=== PATIENT | female | born 1980 | race Hispanic/Latino ===

== ENCOUNTER 2019-07-09 16:07 | Emergency (ER) | payer SELFPAY ==
[2019-07-09] MEDS ORDERED: NA CHLORIDE 0.9% 1,000 ML ONE (16:35)
[2019-07-09] MEDS ORDERED: ONDANSETRON 4 MG/2 ML VIAL ONE (16:35)
[2019-07-09 17:05] LABS: Absolute Lymphocytes (CBC) 1.4 K/uL (0.7-4.9); Basophils % 0.3 % (0-1.3); Hematocrit 34.5 % (36.0-45.0); Lymphocytes % 11.5 % (15.3-44.8); MPV 10.2 fL (7.6-11.3); RBC Red Blood Cell Count 4.52 M/uL (3.86-4.86)
[2019-07-09 17:18] LABS: Urine Bacteria <20 /HPF (<20); Urine Culture Reflex Order NOT NEEDED; Urine RBC <5 /HPF (NONE SEEN)
[2019-07-09 17:34] LABS: Albumin 3.8 g/dL (3.4-5.0); Bilirubin Direct 0.1 mg/dL (0-0.2); Bilirubin Total 0.4 mg/dL (0.2-1.0); Protein, Total 8.2 g/dL (6.4-8.2)
[2019-07-09 17:58] LABS: Potassium 4.1 mmol/L (3.5-5.1)
--- NOTE | 2019-07-09 18:36 | RAD REPORT ---
EXAM DESCRIPTION: CT - Abdomen Pelvis W Contrast - 07/09/2019 6:18 pm CLINICAL HISTORY: lower abdomen pain COMPARISON: No comparisons TECHNIQUE: Biphasic, helical CT imaging of the abdomen and pelvis was performed following 100 ml non -ionic IV contrast. No oral contrast administered. All CT scans are performed using dose optimization technique as appropriate and may include automated exposure control or mA/KV adjustment according to patient size. FINDINGS: No suspicious findings in the lung bases. Liver is borderline to mildly fatty infiltrated. No focal liver lesion. Spleen and pancreas show no s uspicious findings peer gallbladder is absent. No biliary tree dilatation. Symmetric renal function is seen with no hydronephrosis or suspicious renal mass. No pyelonephritis o r acute parenchymal process. No bladder abnormalities. No adrenal abnormalities. An enlarged uterus i s seen. There is a 5.2 centimeter enhancing isodense mass in the left side of the uterus. This has an appearance typical for a large fibroid. No air in the endometrial cavity. Tubular fluid-filled struc tures are present in each adnexae. Minimal congestion or edema in the adnexal fatty tissues. Lao of the fallopian tubes are slightly thickened. No dilated bowel loops or bowel wall thickening. Appendicitis is not suspected. No free air, free flu id or inflammatory stranding. No hernia, mass or bulky lymphadenopathy. No suspicious bony findings. IMPRESSION: Bilateral dilated fallopian tubes. Lao are slightly thickened and edematous. Correlati on is needed with any pyosalpinx clinical history or exam findings. Enhancing 5 centimeter left-sided uterine mass is most likely an incidental fibroid. No appendicitis or acute GI finding. No pyelonephritis or acute process. Borderline to mild fatty infiltration of the liver.
[2019-07-09] MEDS ORDERED: CEFTRIAXONE/SWI 1gm 1 GM/10 ML SYR ONE (21:12)
[2019-07-09] MEDS ORDERED: metroNIDAZOLE 500 MG TABLET ONE (21:12)
[2019-07-09] MEDS ORDERED: DOXYCYCLINE 100 MG CAP PO ONE (21:12)
[2019-07-09] MEDS ORDERED: KETOROLAC 30 MG/ML INJ ONE (22:06)
[2019-07-09 23:00] LABS: Urine Blood NEGATIVE (NEG); Urine Glucose NEGATIVE (NEG); Urine Protein NEGATIVE (NEG); Urine Specific Gravity 1.015 (1.005-1.030)
--- NOTE | 2019-07-10 | ER ---
Nurse's Notes [facility] Name: Meenakshi Alba Age: 39 yrs Sex: Female : 1980 Arrival Date: 07/09/2019 Time: 16:08 Bed 25 [facility] MD: Diagnosis: Abdominal and pelvic pain Presentation: 07/09 16:10 Presenting complaint: Patient states: lower abd pain started this morning and chills. sv Transition of care: patient was not received from another setting of care. Onset of symptoms was July 09, 2019. Care prior to arrival: None. 16:10 Method Of Arrival: Wheelchair sv 16:10 Acuity: MARCUS 3 sv 17:02 Risk Assessment: Do you want to hurt yourself or someone else? Patient reports no ca1 desire to harm self or others. Initial Sepsis Screen: Does the patient meet any 2 criteria? No. Patient's initial sepsis screen is negative. Does the patient have a suspected source of infection? No. Patient's initial sepsis screen is negative. Triage Assessment: 16:10 General: Appears in no apparent distress. uncomfortable, Behavior is calm, cooperative, sv appropriate for age. Pain: Complains of pain in right lower quadrant and left lower quadrant. Neuro: Level of Consciousness is awake, alert, obeys commands. Respiratory: Respiratory effort is even, unlabored. GI: Reports lower abdominal pain. 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 - Coronavirus screen:: The patient has NOT traveled to [place] in the past 14 days. Proceed with normal triage process as indicated. The patient has NOT had contact with known/suspected case of Coronavirus? Proceed with normal triage procedures. - Social history:: Smoking status: Patient denies any tobacco usage or history of. - Ebola Screening: : No symptoms or risks identified at this time. Screenin:20 Abuse screen: Denies threats or abuse. Denies injuries from another. Nutritional ca1 screening: No deficits noted. Tuberculosis screening: No symptoms or risk factors identified. Fall Risk IV access (20 points). Assessment: 16:20 General: Appears in no apparent distress. comfortable, Behavior is calm, cooperative, ca1 appropriate for age. Pain: Complains of pain in abdomen and left lower quadrant and right lower quadrant Pain does not radiate. Pain currently is 6 out of 10 on a pain scale. at worst was 10 out of 10 on a pain scale. Quality of pain is described as crampy, sharp, Pain began 1 day ago. Is intermittent. Neuro: Level of Consciousness is awake, alert, obeys commands, Oriented to person, place, time, situation, Appropriate for age. Cardiovascular: Heart tones S1 S2 present Capillary refill < 3 seconds Patient's skin is warm and dry. Respiratory: Airway is patent Respiratory effort is even, unlabored, Respiratory pattern is regular, symmetrical, Breath sounds are clear bilaterally. GI: Abdomen is round non-distended, Bowel sounds present X 4 quads. Abd is soft X 4 quads Abdomen is tender to palpation in right lower quadrant and left lower quadrant Reports nausea. : No signs and/or symptoms were reported regarding the genitourinary system. Urine is clear. EENT: No deficits noted. No signs and/or symptoms were reported regarding the EENT system. Derm: Skin is intact, is healthy with good turgor, Skin is pink, warm \T\ dry. Musculoskeletal: Circulation, motion, and sensation intact. Capillary refill < 3 seconds, Range of motion: intact in all extremities. 17:02 Reassessment: Patient appears in no apparent distress at this time. Patient and/or ca1 family updated on plan of care and expected duration. Pain level reassessed. Patient is alert, oriented x 3, equal unlabored respirations, skin warm/dry/pink. 18:00 Reassessment: Patient appears in no apparent distress at this time. Patient and/or ca1 family updated on plan of care and expected duration. Pain level reassessed. Patient is alert, oriented x 3, equal unlabored respirations, skin warm/dry/pink. 19:00 Reassessment: Patient appears in no apparent distress at this time. Patient is alert, ca1 oriented x 3, equal unlabored respirations, skin warm/dry/pink. 20:00 Reassessment: US at bedside. ca1 20:05 Reassessment: Patient appears in no apparent distress at this time. Patient and/or ca1 family updated on plan of care and expected duration. Pain level reassessed. Patient is alert, oriented x 3, equal unlabored respirations, skin warm/dry/pink. 21:00 Reassessment: Patient appears in no apparent distress at this time. Patient and/or ca1 family updated on plan of care and expected duration. Pain level reassessed. Patient is alert, oriented x 3, equal unlabored respirations, skin warm/dry/pink. 21:57 Reassessment: Patient appears in no apparent distress at this time. Patient and/or ca1 family updated on plan of care and expected duration. Pain level reassessed. Patient is alert, oriented x 3, equal unlabored respirations, skin warm/dry/pink. 23:00 Reassessment: Patient is alert, oriented x 3, equal unlabored respirations, skin bb warm/dry/pink. pt verbalized understanding of and agrees to plan of care discharge instructions given pt ambulated with steady gait to exit accompanied by spouse. Vital Signs: 16:11 BP 116 / 50; Pulse 100; Resp 26; Temp 98.4; Pulse Ox 100% ; Weight 73.48 kg; Height 5 sv ft. 5 in. (165.10 cm); 17:02 BP 132 / 60; Pulse 95; Resp 17 S; Pulse Ox 100% on R/A; ca1 18:00 BP 136 / 80; Pulse 109; Resp 18 S; Pulse Ox 100% on R/A; ca1 19:00 BP 132 / 68; Pulse 112; Resp 17 S; Pulse Ox 100% on R/A; ca1 20:05 BP 137 / 78; Pulse 99; Resp 17 S; Pulse Ox 100% on R/A; ca1 21:00 BP 128 / 61; Pulse 101; Resp 17 S; Pulse Ox 99% on R/A; ca1 21:57 BP 126 / 65; Pulse 98; Resp 17 S; Pulse Ox 99% on R/A; ca1 23:00 BP 100 / 48; Pulse 82; Resp 16 S; Temp 98.4(O); Pulse Ox 100% on R/A; bb 16:11 Body Mass Index 26.96 (73.48 kg, 165.10 cm) sv ED Course: 16:08 Patient arrived in ED. as 16:10 Triage completed. sv 16:11 Arm band placed on. sv 16:12 David Magdaleno PA is PHCP. cp 16:12 Haile Chino MD is Attending Physician. cp 16:20 Patient has correct armband on for positive identification. Placed in gown. Bed in low ca1 position. Call light in reach. Side rails up X 1. Pulse ox on. NIBP on. Warm blanket given. 16:29 Kavya Barron, RN is Primary Nurse. ca1 16:45 Initial lab(s) drawn, by mn, sent to lab. Urine collected: clean catch specimen, clear, ca1 Amount Voided: 60mL. Inserted saline lock: 22 gauge in left antecubital area, using aseptic technique. Blood collected. 19:28 Casey Vergara MD is Attending Physician. cp 21:00 Assist provider with pelvic exam: Set up pelvic tray. Performed by David MILLS ca1 Specimens sent to lab. Patient tolerated. 22:37 Yuri Murry MD is Referral Physician. cp 23:00 IV discontinued, intact, bleeding controlled, No redness/swelling at site. Pressure bb dressing applied. 23:05 CT Abd/Pelvis - IV Contrast Only In Process Unspecified. EDMS 23:15 Transvaginal Study Probe In Process Unspecified. EDMS Administered Medications: 16:50 Drug: NS 0.9% 1000 ml Route: IV; Rate: 1 bolus; Site: left antecubital; ca1 17:30 Follow up: Response: No adverse reaction; IV Status: Completed infusion ca1 18:00 Follow up: Response: No adverse reaction; IV Status: Completed infusion ca1 16:53 Drug: Zofran 4 mg Route: IVP; Site: left antecubital; ca1 18:00 Follow up: Response: No adverse reaction; Nausea is decreased ca1 18:16 Follow up: Response: No adverse reaction; Nausea is decreased ca1 21:00 Drug: Doxycycline 100 mg Route: PO; ca1 21:58 Follow up: Response: No adverse reaction ca1 21:02 Drug: metroNIDAZOLE 500 mg Route: PO; ca1 21:58 Follow up: Response: No adverse reaction ca1 21:10 Drug: Rocephin 1 grams Route: IV; Rate: calculated rate; Site: left antecubital; ca1 21:58 Follow up: Response: No adverse reaction; IV Status: Completed infusion ca1 22:03 Drug: TORadol - Ketorolac 15 mg Route: IVP; Site: left antecubital; ca1 Outcome: 22:38 Discharge ordered by . cp 23:00 Discharged to home ambulatory, with family. bb 23:00 Condition: stable 23:00 Discharge instructions given to patient, Instructed on discharge instructions, follow up and referral plans. medication usage, Demonstrated understanding of instructions, follow-up care, medications, Prescriptions given X 3. 23:36 Patient left the ED. bb Signatures: Dispatcher [employer] EDJena Campbell, RN RN Tasia Segura Brenda, RN RN bb David Magdaleno PA PA cp Acob, Cheryl, RN RN ca1 Corrections: (The following items were deleted from the chart) 21:25 16:45 No provider procedures requiring assistance completed. ca1 ca1
--- NOTE | 2019-07-10 00:02 | EDPHYS ---
Physician Documentation [facility] Name: Meenakshi Alba Age: 39 yrs Sex: Female : 1980 Arrival Date: 07/09/2019 Time: 16:08 Bed 25 Private MD: ED Physician Casey Vergara HPI: 07/09 16:30 This 39 yrs old Female presents to ER via Wheelchair with complaints of cp Abdominal Pain. 16:30 The patient presents with abdominal pain in the lower abdomen. Onset: The cp symptoms/episode began/occurred yesterday, and became worse today. The symptoms radiate to back. Associated signs and symptoms: Pertinent positives: dysuria, nausea, Pertinent negatives: chest pain, constipation, diarrhea, fever, vaginal discharge, vomiting. 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 - Coronavirus screen:: The patient has NOT traveled to [place] in the past 14 days. Proceed with normal triage process as indicated. The patient has NOT had contact with known/suspected case of Coronavirus? Proceed with normal triage procedures. - Social history:: Smoking status: Patient denies any tobacco usage or history of. - Ebola Screening: : No symptoms or risks identified at this time. ROS: 16:35 Constitutional: Negative for body aches, chills, fever, poor PO intake. cp 16:35 Eyes: Negative for injury, pain, redness, and discharge. cp 16:35 ENT: Negative for drainage from ear(s), ear pain, sore throat, difficulty swallowing, difficulty handling secretions. 16:35 Cardiovascular: Negative for chest pain, palpitations. 16:35 Respiratory: Negative for cough, shortness of breath, wheezing. 16:35 Abdomen/GI: Positive for abdominal pain, nausea, of the right lower quadrant and left lower quadrant, Negative for vomiting, diarrhea, constipation. 16:35 Back: Positive for radiated pain. 16:35 : Negative for hematuria, vaginal bleeding, vaginal discharge. 16:35 Skin: Negative for rash. 16:35 Neuro: Negative for altered mental status, dizziness, headache, weakness. 16:35 All other systems are negative. Exam: 16:40 Constitutional: The patient appears in no acute distress, alert, awake, non-toxic, well cp developed, well nourished. 16:40 Head/Face: Normocephalic, atraumatic. cp 16:40 Eyes: Periorbital structures: appear normal, Conjunctiva: normal, no exudate, no injection, Sclera: no appreciated abnormality, Lids and lashes: appear normal, bilaterally. 16:40 ENT: External ear(s): are unremarkable, Nose: is normal, Mouth: Lips: moist, Oral mucosa: moist, Posterior pharynx: is normal, airway is patent, no erythema, no exudate. 16:40 Chest/axilla: Inspection: normal, Palpation: is normal, no crepitus, no tenderness. 16:40 Cardiovascular: Rate: tachycardic, Rhythm: regular. 16:40 Respiratory: the patient does not display signs of respiratory distress, Respirations: normal, no use of accessory muscles, no retractions, labored breathing, is not present, Breath sounds: are clear throughout, no decreased breath sounds. 16:40 Abdomen/GI: Inspection: abdomen appears normal, Bowel sounds: active, all quadrants, Palpation: soft, in all quadrants, moderate abdominal tenderness, in the right lower quadrant and left lower quadrant, rebound tenderness, is not appreciated, voluntary guarding, is elicited in the right lower quadrant and left lower quadrant. 16:40 Neuro: Orientation: to person, place \T\ time. Mentation: is normal. 20:59 : Pelvic Exam: External exam: is normal, Speculum exam: no bleeding is noted, os that cp is closed, bimanual exam reveals cervical motion tenderness, discharge, white, the nurse was present for the exam. Vital Signs: 16:11 BP 116 / 50; Pulse 100; Resp 26; Temp 98.4; Pulse Ox 100% ; Weight 73.48 kg; Height 5 sv ft. 5 in. (165.10 cm); 17:02 BP 132 / 60; Pulse 95; Resp 17 S; Pulse Ox 100% on R/A; ca1 18:00 BP 136 / 80; Pulse 109; Resp 18 S; Pulse Ox 100% on R/A; ca1 19:00 BP 132 / 68; Pulse 112; Resp 17 S; Pulse Ox 100% on R/A; ca1 20:05 BP 137 / 78; Pulse 99; Resp 17 S; Pulse Ox 100% on R/A; ca1 21:00 BP 128 / 61; Pulse 101; Resp 17 S; Pulse Ox 99% on R/A; ca1 21:57 BP 126 / 65; Pulse 98; Resp 17 S; Pulse Ox 99% on R/A; ca1 23:00 BP 100 / 48; Pulse 82; Resp 16 S; Temp 98.4(O); Pulse Ox 100% on R/A; bb 16:11 Body Mass Index 26.96 (73.48 kg, 165.10 cm) sv MDM: 16:22 Patient medically screened. cp 17:00 Differential diagnosis: appendicitis, bowel obstruction, diverticulitis, non-specific cp abd pain, Ovarian Torsion, Pelvic Inflammatory Disease, Pyelonephritis, Tubal Ovarian Abcess, Ureterolithiasis, urinary tract infection. 22:37 Data reviewed: vital signs, nurses notes, lab test result(s), radiologic studies, CT cp scan, ultrasound, I have discussed the patient's presentation/case with the attending Emergency Department Physician; and as a result, I will discharge patient. 22:37 Counseling: I had a detailed discussion with the patient and/or guardian regarding: the cp historical points, exam findings, and any diagnostic results supporting the discharge/admit diagnosis, lab results, radiology results, the need for outpatient follow up, an OB/Gyne specialist, to return to the emergency department if symptoms worsen or persist or if there are any questions or concerns that arise at home. Response to treatment: the patient's symptoms have mildly improved after treatment, and as a result, I will discharge patient. 07/09 16:28 Order name: Basic Metabolic Panel; Complete Time: 00:25 cp 07/09 16: Order name: CBC with Diff; Complete Time: 00:25 cp 07/09 16:28 Order name: Creatinine for Radiology; Complete Time: 00:25 cp 07/09 16:28 Order name: Hepatic Function; Complete Time: 00:25 cp 07/09 16:28 Order name: Lipase; Complete Time: 00:25 cp 07/09 16:28 Order name: Urine Microscopic Only; Complete Time: 00:25 cp 07/09 17:29 Order name: Urine Dipstick--Ancillary (enter results) bd 07/09 17:29 Order name: Urine --Ancillary (enter results) bd 07/09 19:53 Order name: Wet Prep cp 07/09 23:02 Order name: Wet Prep; Complete Time: 00:25 EDMS 07/09 23:12 Order name: Urine --Ancillary; Complete Time: 00:25 EDMS 07/09 23:12 Order name: Urine Dipstick-Ancillary; Complete Time: 00:25 EDMS 07/09 23:14 Order name: Wet Prep EDNE 07/09 16:28 Order name: IV Saline Lock; Complete Time: 16:53 cp 07/09 16:28 Order name: Labs collected and sent; Complete Time: 16:53 cp 07/09 16:28 Order name: Urine Dipstick-Ancillary (obtain specimen); Complete Time: 16:59 cp 07/09 16:28 Order name: Urine Test (obtain specimen); Complete Time: 16:59 cp 07/09 16:28 Order name: CT Abd/Pelvis - IV Contrast Only; Complete Time: 00:25 cp 07/09 19:31 Order name: US Transvaginal Study (Probe) 07/09 23:14 Order name: Transvaginal Study Probe [facility] 07/09 23:33 Order name: GC (Raman/Chl) Probe CX/URE EDMS Administered Medications: 16:50 Drug: NS 0.9% 1000 ml Route: IV; Rate: 1 bolus; Site: left antecubital; ca1 17:30 Follow up: Response: No adverse reaction; IV Status: Completed infusion ca1 18:00 Follow up: Response: No adverse reaction; IV Status: Completed infusion ca1 16:53 Drug: Zofran 4 mg Route: IVP; Site: left antecubital; ca1 18:00 Follow up: Response: No adverse reaction; Nausea is decreased ca1 18:16 Follow up: Response: No adverse reaction; Nausea is decreased ca1 21:00 Drug: Doxycycline 100 mg Route: PO; ca1 21:58 Follow up: Response: No adverse reaction ca1 21:02 Drug: metroNIDAZOLE 500 mg Route: PO; ca1 21:58 Follow up: Response: No adverse reaction ca1 21:10 Drug: Rocephin 1 grams Route: IV; Rate: calculated rate; Site: left antecubital; ca1 21:58 Follow up: Response: No adverse reaction; IV Status: Completed infusion ca1 22:03 Drug: TORadol - Ketorolac 15 mg Route: IVP; Site: left antecubital; ca1 Disposition: 07/10 00:24 Co-signature as Attending Physician, Casey Vergara MD. rn Disposition: 07/09/19 22:38 Discharged to Home. Impression: Abdominal and pelvic pain. - Condition is Stable. - Discharge Instructions: Abdominal Pain, Adult, Pelvic Pain, Female. - Prescriptions for Doxycycline Hyclate 100 mg Oral Tablet - take 1 tablet by ORAL route every 12 hours; 20 tablet. Metronidazole 500 mg Oral Tablet - take 1 tablet by ORAL route every 8 hours; 30 tablet. Tramadol 50 mg Oral Tablet - take 1 tablet by ORAL route every 8 hours as needed; 12 tablet. - Medication Reconciliation Form, Thank You Letter, Antibiotic Education, Prescription Opioid Use form. - Follow up: Yuri Murry MD; When: 2 - 3 days; Reason: Recheck today's complaints. - Problem is new. - Symptoms have improved. Signatures: Dispatcher [employer] Jena Morataya RN RN Anayeli Middleton RN RN bb Casey Vergara MD MD rn David Magdaleno PA PA cp Acob, Kavya RN RN ca1 Corrections: (The following items were deleted from the chart) 07/09 23:36 22:38 07/09/2019 22:38 Discharged to Home. Impression: Abdominal and pelvic pain. bb Condition is Stable. Discharge Instructions: Pelvic Inflammatory Disease. Prescriptions for Doxycycline Hyclate 100 mg Oral Tablet - take 1 tablet by ORAL route every 12 hours; 20 tablet, Metronidazole 500 mg Oral Tablet - take 1 tablet by ORAL route every 8 hours; 30 tablet. and Forms are Medication Reconciliation Form, Thank You Letter, Antibiotic Education, Prescription Opioid Use. Follow up: Yuri Murry; When: 2 - 3 days; Reason: Recheck today's complaints. Problem is new. Symptoms have improved. cp
[2019-07-10 03:04] VITALS: TEMP 98.4
[2019-07-10 03:13] VITALS: BP 100/48; O2SAT 100
--- NOTE | 2019-07-10 13:04 | RAD REPORT ---
EXAM DESCRIPTION: US - Transvaginal Study Probe - 07/09/2019 8:23 pm CLINICAL HISTORY: Pelvic pain. COMPARISON: None. TECHNIQUE: Grayscale, color Doppler, and spectral Doppler ultrasound images of the pelvis were obtai esmer. FINDINGS: The uterus is anteverted and measures 10.2 x 6.9 cm. Nabothian cysts are seen in the cervi x. The endometrium is 5 mm in thickness. There is a 5 cm fibroid near the uterine fundus. The right o vary measures 3.8 cm and contains normal color Doppler blood flow. The left ovary is not visualized. No pelvic free fluid. IMPRESSION: 1. Likely 5 cm uterine fibroid. 2. Normal right ovary. Left ovary not visualized. Electronically signed by: Joseph Hughes MD 07/09/2019 11:01 PM MATH AND SCIENCES DEPARTMENT CHAIR Due to temporary technical issues with the PACS/Fluency reporting system, reports are being signed by the in house radiologist as a courtesy to ensure prompt reporting. The interpreting radiologist is f ully responsible for the content of the report.
[2019-07-13 05:33] LABS: C.trachomatis RNA,TMA Not Detected (Not Detected)
== END 2019-07-09 23:36 | disposition home or self-care (01) ==
LOC: ER 16:07
DX: R10.2 Pelvic and perineal pain (principal); Z88.5 Allergy status to narcotic agent
CPT/HCPCS: 36415; 74177; 76830; 80048; 80076; 81003; 81015; 81025; 83690; 85025; 87210; 87490; 87590; 96361; 96365; 96375; 99284; J0696; J2405; J7030; Q9967